=== PATIENT | female | born 1985 | race Caucasian/White ===

== ENCOUNTER → 2022-10-22 | Outpatient (CLI) | payer OTHER, SELFPAY ==
[2022-10-22 15:46] LABS: HIV - WCH Non-Reactive (Nonreactive); Hepatitis B Surface Antigen Non-Reactive (Nonreactive); Hepatitis C Antibody Non-Reactive (Nonreactive); Syphilis Antibodies Non-reactive
[2022-10-24 09:09] LABS: HSV 2 IgG < 0.91 index (0.00-0.90)
== END | disposition home or self-care (01) ==
LOC: LAB 13:40
DX: Z11.59 Encounter for screening for other viral diseases (principal)
CPT/HCPCS: 36415; 86695; 86696; 86703; 86780; 86803; 87340

== ENCOUNTER → 2022-11-19 | Outpatient (CLI) | payer OTHER, SELFPAY ==
[2022-11-23 05:07] LABS: Chlamydia By Nucleic Acid AMP Negative (Negative); Gonococcus By Nucleic Acid AMP Negative (Negative)
== END | disposition home or self-care (01) ==
PROVIDERS: Visit Provider Advanced Practice Midwife
DX: Z11.3 Encounter for screening for infections with a predominantly sexual mode of transmission (principal)
CPT/HCPCS: 87491; 87591

== ENCOUNTER → 2023-02-09 | Outpatient (CLI) | payer BC, SELFPAY ==
[2023-02-11 05:07] LABS: Chlamydia By Nucleic Acid AMP Negative (Negative); Gonococcus By Nucleic Acid AMP Negative (Negative)
[2023-02-15 13:08] LABS: HPV APTIMA, High Risk Negative (Negative)
== END | disposition home or self-care (01) ==
PROVIDERS: Referring Provider Advanced Practice Midwife; Visit Provider Advanced Practice Midwife
DX: Z12.4 Encounter for screening for malignant neoplasm of cervix (principal); Z11.3 Encounter for screening for infections with a predominantly sexual mode of transmission
CPT/HCPCS: 87491; 87591; 87624; 88175; G0145

== ENCOUNTER 2023-05-09 10:15 | Emergency (ER) | payer BC, SELFPAY ==
[2023-05-09 10:16] VITALS: BP 144/102; PULSE 87; RESP 16; TEMP 36.3; O2SAT 98; BMI 35.3
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
[2023-05-09 10:32] VITALS: PULSE 85; RESP 18; O2SAT 99
== END 2023-05-09 10:36 | disposition home or self-care (01) ==
LOC: ED 10:29
PROVIDERS: Emergency Provider Emergency Medicine; PCP Family Medicine; Visit Provider Emergency Medicine
DX: Z04.2 Encounter for examination and observation following work accident (principal); M41.9 Scoliosis, unspecified
CPT/HCPCS: 99282

== ENCOUNTER → 2023-09-20 | Outpatient (CLI) | payer BC, SELFPAY ==
--- NOTE | 2023-09-20 08:51 | US_ITS ---
STUDY: SUPERFICIAL ULTRASOUND - LEFT UPPER EXTREMITY SWELLING/PALPABLE LUMP. REASON FOR EXAM: Female, 37 years old. Left arm swelling/ lump TECHNIQUE: A superficial ultrasound was performed with real-time and static maya-scale imaging. COMPARISON: None. FINDINGS: The anterior aspect of the left shoulder was examined corresponding to the palpable lump. The palpable abnormality corresponds to a 1.8 cm x 2.2 cm x 1.2 cm complex cystic structure with septations. If the patient has a history of trauma. This may represent a resolving hematoma. Tissue sampling and drainage recommended. US/Ext Non Vasc Limited/Soft Tiss IMPRESSION: The palpable lump corresponds to a 1.8 cm x 2.2 cm x 1.2 cm complex cystic structure with septations. Tissue diagnosis/drainage recommended. Electronically Signed: Davion Tanner MD at 12:48 EST ,
== END | disposition home or self-care (01) ==
PROVIDERS: PCP Family Medicine; Referring Provider Family Medicine; Visit Provider Family Medicine
DX: M79.89 Other specified soft tissue disorders (principal)
CPT/HCPCS: 76882

== ENCOUNTER → 2024-03-21 | Outpatient (CLI) | payer BC, SELFPAY | END | disposition home or self-care (01) | PROVIDERS: PCP Family Medicine; Referring Provider Pharmacist Pharmacist Clinician (PhC)/ Clinical Pharmacy Specialist; Visit Provider Pharmacist Pharmacist Clinician (PhC)/ Clinical Pharmacy Specialist | DX: R53.83 Other fatigue (principal); Z79.899 Other long term (current) drug therapy | CPT/HCPCS: 36415; 80053; 80061; 82607; 82728; 83036; 83540; 83550; 84443; 85027 ==

== ENCOUNTER → 2024-03-22 | Outpatient (CLI) | payer BC, SELFPAY ==
[2024-03-22 10:25] LABS: Hematocrit 32.1 % (37-47); Hemoglobin 9.7 g/dL (12.0-15.0); Mean Corp Hgb Conc 30.2 g/dL (32-36); Mean Corpuscular Hgb 26.8 pg (27.0-32.0); Mean Corpuscular Volume 88.7 fL (81-99); Platelet Count 266 K/mm3 (150-450); RBC Distribution Width CV 16.8 % (11.6-14.6); RBC Distribution Width SD 54.2 fl (35.1-43.9); Red Blood Count 3.62 M/mm3 (4.2-5.4); White Blood Count 4.9 K/mm3 (4.4-11.0)
[2024-03-22 10:55] LABS: Vitamin B12 433 pg/mL (211-911)
[2024-03-22 11:43] LABS: ALB/GLOB Ratio 0.8 RATIO (0.9-2.4); AST(SGOT) 18 U/L (15-37); Alanine Aminotransfer ALT/SGPT 18 U/L (13-56); Albumin, Serum 2.9 g/dL (3.2-5.0); Alkaline Phosphatase 69 U/L (45-117); Anion Gap 5 (5-15); BUN 10 mg/dL (7-18); BUN/Creat Ratio 11.3 RATIO (10-20); Calcium,Total 8.8 mg/dL (8.5-10.1); Chloride 105 mmol/L (98-107); Cholesterol 152 mg/dL (200); Creatinine, Serum 0.88 mg/dL (0.55-1.02); EST Glomerular Filtration Rate 77 mL/min (>60); Est Glom Filt Rate - Afr Amer 93 mL/min (>60); Ferritin 5 ng/mL (8-252); Globulin 3.5 g/dL (2.2-4.2); Glucose 83 mg/dL (74-106); High Density Lipoprotein 50 mg/dL; Iron 39 ug/dL (50-170); Iron Binding Capacity,Total 314 ug/dL (250-450); PERCENT IRON SATURATION 12.4 % (15.0-55.0); Potassium 4.5 mmol/L (3.5-5.1); Protein, Total 6.4 g/dL (6.4-8.2); Sodium Level 137 mmol/L (136-145); Triglycerides 61 mg/dL; Very Low Density Lipoprotein 12 mg/dL (5-40)
[2024-03-22 13:03] LABS: Hemoglobin A1c 5.6 % (3.8-5.6)
== END | disposition home or self-care (01) ==
LOC: LAB 09:50
PROVIDERS: PCP Family Medicine; Referring Provider Pharmacist Pharmacist Clinician (PhC)/ Clinical Pharmacy Specialist; Visit Provider Pharmacist Pharmacist Clinician (PhC)/ Clinical Pharmacy Specialist
DX: R53.83 Other fatigue (principal); Z79.899 Other long term (current) drug therapy
CPT/HCPCS: 36415; 80053; 80061; 82607; 82728; 83036; 83540; 83550; 84443; 85027

== ENCOUNTER → 2024-08-02 | Outpatient (CLI) | payer BC, MEDICAID, SELFPAY ==
--- NOTE | 2024-08-02 10:42 | RAD_ITS ---
STUDY: X-RAY - RIGHT SHOULDER REASON FOR EXAM: Female, 38 years old. Shoulder pain. TECHNIQUE: 3 views of the right shoulder. COMPARISON: None. FINDINGS: Normal glenohumeral articulation. Normal acromioclavicular joint. Normal acromion. Normal humeral head and visualized proximal humerus. The soft tissue structures are unremarkable. There is no demonstrated fracture. Normal visualized pulmonary apex. RAD/Shoulder min 2 Views IMPRESSION: No demonstrated fracture. Electronically Signed: Cassius Patino MD at 11:12 EST ,
== END | disposition home or self-care (01) ==
LOC: RAD 10:38
PROVIDERS: PCP Family Medicine; Referring Provider Family Medicine; Visit Provider Family Medicine
DX: M25.511 Pain in right shoulder (principal)
CPT/HCPCS: 73030

== ENCOUNTER 2024-09-18 08:00 | Outpatient (RCR) | payer BC, MEDICAID, SELFPAY ==
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
--- NOTE | 2024-09-18 16:05 | HP.PTDCSUM ---
Discharge Summary D/C summary: It has been my pleasure to treat PHILIP LUGO referred by Mc Renae MD, with the diagnosis of R SHLD PAIN for a total of 8 visit(s). Discharge Date: 09/18/24 Please see the following information for a summary of their discharge status. Subjective Subjective: PATIENT REPORTS SHE ISN'T HAVING MANY EPISODES OF FEELING LIKE HER SHLD IS COMING OUT. I CAN CERTAINLY REACH UP FOR THINGS BETTER SINCE STARTING THERAPY. PATIENT REPORTS THERAPY HAS HELPED AND SHE IS DOING THE EX'S AT HOME. SHE REPORTS THE MORE SHE DOES HER EX'S THE LESS IT HURTS. SHE STATES SHE FEELS LIKE SHE HAS LEARNED ENOUGH TO CONTINUE ON HER OWN AND IS REQUESTING TO STOP PT AT THIS POINT. STATES SHE HASN'T HAD TO TAKE ANY PAIN MEDICINE FOR HER SHOULDER SINCE AUGUST. Pain Right Shoulder: Pain Intensity (Out of 10): 1 Left Shoulder: Pain Intensity (Out of 10): 0 Overall Improvement % Improvement: 60 Objective Objective/Function: PATIENT WAS SEEN TODAY FOR RE-ASSESSMENT OF PROGRESS TOWARD THE SET PT GOALS AND THE NEED FOR FURTHER PHYSICAL THERAPY VS READINESS FOR DISCHARGE. UPON EXAM TODAY: ROM: R SHLD FLEX AROM IN STANDING 175 DEG, ABD 155 DEG, ER 90 DEG, IR 85 DEG (ROTATION TESTED WITH 90 DEG ABD). PATIENT DENIES PAIN WITH R SHLD ROM TEESTING TODAY. STRENGTH: R SHLD FLEX 4/5, ABD 4/5, ER 4/5, IR 5/5. Goals Goal 1:: DECREASE C/O R SHLD PAIN BY AT LEAST 75% TO EASE ADL AND WORK FUNCTION Goal Progress: Progressing Goal 2:: INCREASE PAINFREE R UE FUNCTION ROM Goal Progress: Goal Met Goal 3:: IMPROVE R UE FUNCTIONAL STRENGTH Goal Progress: Goal Met Goal 4:: INDEP HEP Goal Progress: Goal Met Plan Plan: D/C TO HEP AT PATIENTS REQUEST. D/C Information d/c sentence: If there are questions or concerns regarding this patient's physical therapy, please feel free to call me at [phone]. Thank you for the referral of this patient. Sincerely, Tiffany Singer, PT, Cert MDT Balance/Gait/Functional tests Balance/Special Test Scores Quick DASH Score: 9.0900 Improvement % Improvement: 60
== END 2024-09-18 19:00 | disposition home or self-care (01) ==
LOC: PT 08:00
PROVIDERS: PCP Family Medicine; Referring Provider Family Medicine; Visit Provider Family Medicine
DX: M25.519 Pain in unspecified shoulder (principal)
CPT/HCPCS: 97110; 97162; 97530

== ENCOUNTER 2025-04-15 08:33 | Emergency (ER) | payer BC, MEDICAID, SELFPAY ==
[2025-04-15 08:34] VITALS: BP 127/82; PULSE 87; RESP 18; TEMP 36.7; O2SAT 100; BMI 37.9
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
[2025-04-15 08:58] VITALS: BP 126/87; PULSE 73; RESP 18; TEMP 36.7; O2SAT 99
== END 2025-04-15 09:07 | disposition home or self-care (01) ==
LOC: ED 09:07
PROVIDERS: Emergency Provider Surgery; PCP Family Medicine; Visit Provider Surgery
DX: S60.421A Blister (nonthermal) of left index finger, initial encounter (principal); M79.10 Myalgia, unspecified site; V43.52XA Car driver injured in collision with other type car in traffic accident, initial encounter
CPT/HCPCS: 99283